=== PATIENT | male | born 1985 | race Caucasian/White ===

== ENCOUNTER 2022-05-01 07:58 | Day surgery (SDC) | payer OTHER ==
[~2022-05-01] VITALS: Ht 170.2 cm; Wt 72.4 kg
[2022-05-01 08:22] VITALS: BP 109/79; PULSE 60; TEMP 97.2
[2022-05-01] MEDS ORDERED: PEPCID 20MG TAB20 MG PO (08:25)
[2022-05-01 09:25] VITALS: BP 104/77; PULSE 66; TEMP 96.5
--- NOTE | 2022-05-01 09:25 | NUR ---
0925 AWAKE, ALERT. AMBULATES FROM CART TO RECLINER WITH STAND BY ASSIST. SEATED IN CHAIR WITH LEGS ELEVATED. DENIES ABD PAIN, NAUSEA OR DYSPHAGIA. 0940 TOLERATES PO MUFFIN AND WATER WITHOUT NAUSEA. SWALLOWS WITHOUT DIFFICULTY. 0949 DR. VARGAS HERE TO VISIT WITH PATIENT. 0955 DISCHARGE INSTRUCTIONS REVIEWED. PATIENT VERBALIZES UNDERSTANDING. COPY OF INSTRUCTIONS AND EDUCATIONAL MATERIALS PROVIDED TO PATIENT IN GO HOME FOLDER. 1022 REMAINS AWAKE, ALERT. MONITORS DISCONTINUED. PATIENT DRESSES SELF. AWAITING ARRIVAL OF FRIEND FOR TRANSPORTATION HOME. PATIENT STATES WILL LIKELY BE NEAR 11 AM BEFORE RIDE HOME ARRIVES.
[2022-05-01 09:40] VITALS: BP 124/87; PULSE 60
[2022-05-01 09:55] VITALS: BP 116/84; PULSE 56
[2022-05-01 10:10] VITALS: BP 115/77; PULSE 64
[2022-05-01 10:25] VITALS: BP 115/73; PULSE 70
== END 2022-05-01 10:55 | disposition home or self-care (01) ==
LOC: SDCO 07:58
DX: K21.00 Gastro-esophageal reflux disease with esophagitis, without bleeding (principal)
CPT/HCPCS: J2704; J7120